=== PATIENT | female | born 1960 | race Two or more races ===

== ENCOUNTER → 2021-03-29 | Outpatient (CLI) | payer OTHER | END | disposition home or self-care (01) | LOC: STAR 07:23 | PROVIDERS: ATTEND Obstetrics & Gynecology Female Pelvic Medicine and Reconstructive Surgery | DX: Z01.818 Encounter for other preprocedural examination (principal); R10.2 Pelvic and perineal pain; N81.6 Rectocele; N81.3 Complete uterovaginal prolapse; N39.3 Stress incontinence (female) (male); R94.31 Abnormal electrocardiogram [ECG] [EKG]; Z20.822 Contact with and (suspected) exposure to COVID-19 | CPT/HCPCS: 93005; U0003; U0005 ==

== ENCOUNTER 2021-04-03 05:43 | Day surgery (SDC) | payer OTHER ==
[~2021-04-03] VITALS: Ht 157.5 cm; Wt 61.5 kg
[2021-04-03] MEDS ORDERED: NO MEDS PER PT (06:13)
[2021-04-03 06:28] VITALS: BP 128/67
[2021-04-03] MEDS ORDERED: LACTATED RINGERS 1,000 ML IV SCH (06:30)
[2021-04-03] MEDS ORDERED: CHLORHEXIDINE 15 ML UDC PO ONE (06:30)
[2021-04-03] MEDS ORDERED: EPINEPHRINE 1 MG/ML, 1ML ONE (06:53)
[2021-04-03] MEDS ORDERED: BUPIVACAINE/PF 0.25% ONE (06:53)
[2021-04-03] MEDS ORDERED: NEOMY/POLYMYXIN B GU IRR. 1 ML ONE (06:53)
[2021-04-03] MEDS ORDERED: FENTANYL PF 100 MCG/2ML IV PRN (07:30)
[2021-04-03] MEDS ORDERED: DIAZEPAM 5 MG/ML, 2ML IVPush PRN (07:30)
[2021-04-03] MEDS ORDERED: HYDROmorphone 1 MG/ML, 1ML INJ IVPush PRN (07:30)
[2021-04-03] MEDS ORDERED: FENTANYL PF 100 MCG/2ML ONE (07:30)
[2021-04-03] MEDS ORDERED: ONDANSETRON 2MG/ML, 2ML IVPush PRN (07:30)
[2021-04-03] MEDS ORDERED: ACETAMINOPHEN 325 MG TABLET PO PRN (07:30)
[2021-04-03] MEDS ORDERED: OXYcodone 5 MG/5 ML ORAL.SOL UDC PO PRN (07:30)
[2021-04-03] MEDS ORDERED: MIDAZOLAM 1 MG/ML, 2ML ONE (07:31)
[2021-04-03] MEDS ORDERED: ONDANSETRON 2MG/ML, 2ML ONE (08:25)
[2021-04-03] MEDS ORDERED: CEFAZOLIN 1,000 MG ONE ×2 (08:25)
[2021-04-03] MEDS ORDERED: LIDOCAINE-MPF 2% ,5ML ONE (08:25)
[2021-04-03] MEDS ORDERED: PROPOFOL 10 MG/ML, 20ML ONE (08:25)
[2021-04-03] MEDS ORDERED: MEPERIDINE/PF 25MG/ML,1ML ONE ×2 (09:07→09:40)
[2021-04-03] MEDS: MEPERIDINE/PF 25MG/0.5ML IVPush PRN ×2 (09:08→09:45)
[2021-04-03] MEDS ORDERED: OXYcodone 5 MG/5 ML ORAL.SOL UDC ONE (09:08)
[2021-04-03] MEDS ORDERED: ACETAMINOPHEN 650 MG/20.3 ML UDC ONE (09:40)
[2021-04-03] MEDS ORDERED: KETOROLAC 30 MG/1 ML IVPush PRN (11:00)
[2021-04-03] MEDS ORDERED: KETOROLAC 30 MG/1 ML ONE (11:23)
== END 2021-04-03 12:06 | disposition home or self-care (01) ==
LOC: OR 05:43 → OUT 12:06
PROVIDERS: ATTEND Obstetrics & Gynecology Female Pelvic Medicine and Reconstructive Surgery
DX: N99.3 Prolapse of vaginal vault after hysterectomy (principal); N39.46 Mixed incontinence; Z90.722 Acquired absence of ovaries, bilateral; Z90.79 Acquired absence of other genital organ(s); Z98.890 Other specified postprocedural states
CPT/HCPCS: 57265; 57282; 57288; C1771; J0171; J0690; J1885; J2175; J2250; J2405; J2704; J3010; J7120